=== PATIENT | female | born 1945 | race Caucasian/White ===

== ENCOUNTER → 2023-09-20 14:04 | Outpatient (REF) | payer OTHER, SELFPAY | LOC: WDC 14:04 | PROVIDERS: ATTENDING PHYSICIAN Nurse Practitioner | DX: Z12.31 Encounter for screening mammogram for malignant neoplasm of breast (principal) | CPT/HCPCS: 77063; 77067 ==

== ENCOUNTER → 2024-01-18 13:24 | Outpatient (REF) | payer OTHER, SELFPAY | LOC: RCS 13:24 | PROVIDERS: ATTENDING PHYSICIAN Internal Medicine Interventional Cardiology; FAMILY PHYSICIAN Nurse Practitioner | DX: I25.10 Atherosclerotic heart disease of native coronary artery without angina pectoris (principal); I10 Essential (primary) hypertension; Z95.1 Presence of aortocoronary bypass graft; I34.0 Nonrheumatic mitral (valve) insufficiency | CPT/HCPCS: 93017; 93350 ==

== ENCOUNTER 2024-08-21 06:23 | Day surgery (SDC) | payer OTHER, SELFPAY ==
[2024-08-21] VITALS (10 sets, daily range): BP systolic 109–140; BP diastolic 52–102; BMI 18.2
[2024-08-21 07:20] LABS: Hematocrit 38.1 % (37.0-47.0); Hemoglobin 13.1 g/dL (12.0-16.0); Mean Corp Hgb Conc. 34.4 g/dL (33.0-37.0); Mean Corpuscular Hgb 31.6 pg (27.0-31.0); Mean Corpuscular Volume 91.8 fL (81.0-99.0); Mean Platelet Volume 10.3 fL (7.4-10.4); Platelet Count 207 10^3/uL (130-400); Red Blood Cell Count 4.15 10^6/uL (4.20-5.40); Red Cell Dist. Width 11.9 % (11.5-14.5); White Blood Cell Count 6.9 10^3/uL (4.8-10.8)
--- NOTE | 2024-08-21 14:22 | ITS.CL.CATH ---
[facility] - Catheterization
Cardiac Catheterization
Procedure Report:
LEFT HEART CATHETERIZATION
Date of Procedure: August 21, 2024
Referring: Dr. Matt Oh
PROCEDURES:
1. Left heart catheterization with coronary and single-plane left ventriculography
2. Selective saphenous vein graft and CHAR angiography
INDICATION: This a 70-year-old female with a past medical history notable for coronary artery disease and history of coronary artery bypass grafting for treatment of ostial left main stenosis. She underwent bypass surgery in September 2011 with a
BAE-LAD and SVG-OM. Since this time she has done well but has noticed a decline in functional capacity corresponding to her recent stress study. She really never experiences exertional anginal symptoms but she achieved only 5.5 METS of physical
activity on her most recent stress study with exercise terminated due to dyspnea. The stress echo images were also notable for failure to augment normally. She continued to exercise without significant symptoms but return to the office with
complaints of increased fatigue with physical exertion and after a long discussion she is now referred for coronary angiography
ACCESS: Right common femoral artery, 6 [place] sheath
HEMODYNAMICS : (mmHg)
AO (s/d) : 132/50, 84
LV (s/d) : 134/3
LVEDP : 19
CORONARY ANGIOGRAPHY
Dominance: Codominant
LEFT MAIN: 85% ostial stenosis
LEFT ANTERIOR DESCENDING: The LAD arises normally from the left main and runs in the anterior interventricular groove. The LAD has a 30% proximal stenosis and only minor luminal irregularities. A small BAE graft is anastomosed to the mid LAD and
faint competitive flow was noted with retrograde filling of the BAE graft and gradual washout. The mid to distal LAD has only minor irregularities
CIRCUMFLEX: There is a long stenosis as the circumflex arises from the left main and competitive flow is noted in the mid circumflex from a widely patent SVG-OM1 with retrograde filling of the large circumflex system to the PDA. The SVG-OM1 is
widely patent. There is antegrade filling of a moderate-sized OM 1 and retrograde filling back to the mid-distal circumflex and small codominant PDA
RIGHT CORONARY ARTERY: Small to medium caliber codominant vessel that is widely patent over its course
GRAFT ANGIOGRAPHY:
1. BAE-LAD: The BAE graft to the LAD is a small caliber vessel that remains widely patent
2. SVG-OM1: The saphenous vein graft to a moderate size OM1 is patent. There is antegrade filling of the moderate caliber OM1 to the distal vessel. There is retrograde filling proximal to the vein graft anastomosis filling to the proximal OM1 and
into the mid-distal circumflex and PDA. No obstructive stenosis is noted
LEFT VENTRICULOGRAPHY: Left ventriculography is performed in DANIELS projection. The digital single-plane left ventricular ejection fraction is visually estimated greater than 65%
SEDATION: 46 minutes of procedural sedation was utilized. An independent medical language specialist was present to assist with and help manage the patient's level of consciousness and physiologic status
RADIATION SUMMARY: Fluoro Time (min): 11.6, Dose (mGy): 172.3, DAP (Gy.cm2) : 14.1
Closure Device: 6 [place] Angio-Seal RFA
CONCLUSION
1. Severe ostial left main stenosis. Widely patent large SVG-OM1 with retrograde filling of the entire circumflex system. The BAE-LAD is small and atretic but widely patent with reasonable flow.
2. Preserved left ventricular systolic function.
RECOMMENDATIONS
1. Continue medical management and risk factor modification
Copy to: Dr. Matt Oh
== END 2024-08-21 11:32 | disposition home or self-care (01) ==
LOC: CATH 06:23
PROVIDERS: ATTENDING PHYSICIAN Internal Medicine Interventional Cardiology; FAMILY PHYSICIAN Nurse Practitioner
DX: I25.10 Atherosclerotic heart disease of native coronary artery without angina pectoris (principal); Z95.1 Presence of aortocoronary bypass graft; I34.0 Nonrheumatic mitral (valve) insufficiency; I10 Essential (primary) hypertension; E78.2 Mixed hyperlipidemia; E03.9 Hypothyroidism, unspecified; Z79.82 Long term (current) use of aspirin; Z87.891 Personal history of nicotine dependence
CPT/HCPCS: 99152; 99153; C1894; 85027; 93459; C1760; Q9967

== ENCOUNTER → 2024-09-20 12:08 | Outpatient (REF) | payer OTHER, SELFPAY | LOC: WDC 12:08 | PROVIDERS: ATTENDING PHYSICIAN Nurse Practitioner | DX: Z12.31 Encounter for screening mammogram for malignant neoplasm of breast (principal) | CPT/HCPCS: 77063; 77067 ==

== ENCOUNTER → 2025-01-08 10:21 | Outpatient (REF) | payer OTHER, SELFPAY | LOC: RAD 10:21 | PROVIDERS: ATTENDING PHYSICIAN Family Medicine; FAMILY PHYSICIAN Nurse Practitioner | DX: R05.1 Acute cough (principal) | CPT/HCPCS: 71046 ==